=== PATIENT | female | born 1960 ===

== ENCOUNTER 2018-03-11 12:18 | Emergency (ER) | payer SELFPAY ==
[2018-03-11 12:58] VITALS: RESP 18
[2018-03-11] MEDS ORDERED: Sodium Chloride 0.9% 1,000 ML IV STA (13:08)
--- NOTE | 2018-03-11 13:28 | ED PDOC ---
History of Present Illness History of Present Illness: 57 y/o female presents to the ED for evaluation of a headache associated with nausea and cough, onset 4 days ago. Patient states granddaughter has been diagnosed with the Flu. Otherwise, patient denies any vomiting and abdominal pain. PMD: Remy Leblanc HPI: Influenza Time Seen by Provider: 03/11/18 12:35 Chief Complaint: Fever Chief Complaint (Provider): Headache History Per: Patient Exam Limitations: no limitations Have you had recent travel within the past 21 days to any of: No Onset/Duration Of Symptoms: Days (x4) Symptoms include: headache, cough. denies: vomiting Past Medical History Reviewed: Historical Data, Nursing Documentation, Vital Signs Vital Signs: Last Vital Signs Temp 101.2 F H 03/11/18 12:55 Pulse 54 L 03/11/18 12:55 Resp 18 03/11/18 12:55 BP 158/89 H 03/11/18 12:55 Pulse Ox 97 03/11/18 12:55 - Medical History PMH: HTN - Surgical History Surgical History: Appendectomy - Family History Family History: States: Unknown Family Hx - Home Medications Home Medications: Ambulatory Orders Medication Instructions Recorded Acetaminophen [Tylenol Extra 1,000 mg PO Q6 PRN #100 tablet 03/11/18 Strength] Ibuprofen [Motrin Tab] 600 mg PO Q8 PRN #60 tab 03/11/18 - Allergies Allergies/Adverse Reactions: Allergies Allergy/AdvReac Type Severity Reaction Status Date / Time No Known Allergies Allergy Verified 03/11/18 12:22 Review of Systems ROS Statement: Except As Marked, All Systems Reviewed And Found Negative Respiratory: Positive for: Cough Gastrointestinal: Positive for: Nausea Neurological: Positive for: Headache Physical Exam - Reviewed Nursing Documentation Reviewed: Yes Vital Signs Reviewed: Yes - Physical Exam Appears: Positive for: No Acute Distress Head Exam: Positive for: ATRAUMATIC, NORMOCEPHALIC Skin: Positive for: Normal Color, Warm, Dry Eye Exam: Positive for: Normal appearance, EOMI, PERRL Neck: Positive for: Normal, Painless ROM Cardiovascular/Chest: Positive for: Regular Rate, Rhythm. Negative for: Murmur Respiratory: Positive for: Normal Breath Sounds. Negative for: Respiratory Distress Gastrointestinal/Abdominal: Positive for: Normal Exam, Soft. Negative for: Tenderness Extremity: Positive for: Normal ROM. Negative for: Pedal Edema, Deformity Neurologic/Psych: Positive for: Alert, Oriented. Negative for: Motor/Sensory Deficits Medical Decision Making Medical Decision Making: Time: 1308 Plan: -- CMP -- CBC with differential -- CXR Two Views -- Motrin 600 mg PO -- Sodium Chloride IV 125 mls/hr -- Tylenol 650 mg PO -- Zofran Inj 4 mg IVP -- Blood Culture -- Influenza A B Time: 1348 CXR RESULTS FINDINGS: LUNGS: Minimal bibasilar atelectasis PLEURA: No significant pleural effusion identified. No pneumothorax apparent. CARDIOVASCULAR: No significant aortic atherosclerotic calcification present. Normal cardiac size. No pulmonary vascular congestion. OSSEOUS STRUCTURES: No significant abnormalities. VISUALIZED UPPER ABDOMEN: Normal. OTHER FINDINGS: None. IMPRESSION: Minimal bibasilar atelectasis. Scribe Attestation: Documented by Marla Mansfield, acting as a scribe for Ary Clark MD. Provider Scribe Attestation: All medical record entries made by the Scribe were at my direction and personally dictated by me. I have reviewed the chart and agree that the record accurately reflects my personal performance of the history, physical exam, medical decision making, and the department course for this patient. I have also personally directed, reviewed, and agree with the discharge instructions and disposition. - Laboratory Results Result Diagrams: 03/11/18 13:58 03/11/18 13:58 - ECG O2 Sat by Pulse Oximetry: 97 Disposition - Clinical Impression Clinical Impression: Influenza - Disposition Referrals: Ricky Leblanc MD [Primary Care Provider] - Disposition: Transfer of Care Disposition Time: 15:00 Condition: STABLE Prescriptions: Acetaminophen [Tylenol Extra Strength] 1,000 mg PO Q6 PRN #100 tablet PRN Reason: FEVER OR PAIN Ibuprofen [Motrin Tab] 600 mg PO Q8 PRN #60 tab PRN Reason: Pain, Moderate (4-7) Instructions: Flu, Adult (DC) Print Language: [place]IN[place] Patient Signed Over To: Dipti Coker
--- NOTE | 2018-03-11 13:56 | RAD ---
Date of service: 03/11/2018 HISTORY: Cough COMPARISON: Comparison chest 06/11/2012. TECHNIQUE: Chest PA and lateral FINDINGS: LUNGS: Minimal bibasilar atelectasis PLEURA: No significant pleural effusion identified. No pneumothorax apparent. CARDIOVASCULAR: No significant aortic atherosclerotic calcification present. Normal cardiac size. No pulmonary vascular congestion. OSSEOUS STRUCTURES: No significant abnormalities. VISUALIZED UPPER ABDOMEN: Normal. OTHER FINDINGS: None. IMPRESSION: Minimal bibasilar atelectasis.
[2018-03-11 14:20] LABS: BASO % 0.2 % (0.0-2.0); EOS % 0.2 % (0.0-4.0); HEMOGLOBIN 13.6 g/dL (12.0-16.0); LYMPH # 1.3 K/uL (1.0-4.3); LYMPH % 25.6 % (20.0-40.0); MEAN CELL VOLUME 92.3 fl (81.0-99.0); MEAN CORPUSCULAR HEMOGLOBIN 30.1 pg (27.0-31.0); MEAN CORPUSCULAR HGB CONC 32.6 g/dL (33.0-37.0); MEAN PLATELET VOLUME 8.6 fl (7.2-11.7); MONO # 0.4 K/uL (0.0-0.8); MONO % 7.6 % (0.0-10.0); NEUT # 3.3 K/uL (1.8-7.0); NEUT % 66.4 % (50.0-75.0); NRBC % 0.3 % (0.0-0.0); RBC 4.51 Mil/uL (3.80-5.20); RED CELL DISTRIBUTION WIDTH 13.4 % (11.5-14.5)
[2018-03-11 15:11] LABS: BLOOD UREA NITROGEN 9 mg/dl (7-17); CALCIUM 8.5 mg/dL (8.4-10.2); GFR NON-AFRICAN AMERICAN > 60
[2018-03-11 15:16] LABS: ALB/GLOB RATIO 1.2 (1.0-2.1); ALBUMIN 4.3 g/dL (3.5-5.0); ALT/SGPT 83 U/L (9-52); AST/SGOT 109 U/L (14-36)
--- NOTE | 2018-03-11 15:42 | ED PDOC ---
- Laboratory Results Result Diagrams: 03/11/18 13:58 03/11/18 13:58 - ECG O2 Sat by Pulse Oximetry: 95 (RA) Pulse Ox Interpretation: Normal Medical Decision Making Medical Decision Makin Patient signed out to me by Dr. Clark pending CMP. Patient diagnosed with influenza. CXR reviewed, no acute findings. CXR FINDINGS: LUNGS: Minimal bibasilar atelectasis PLEURA: No significant pleural effusion identified. No pneumothorax apparent. CARDIOVASCULAR: No significant aortic atherosclerotic calcification present. Normal cardiac size. No pulmonary vascular congestion. OSSEOUS STRUCTURES: No significant abnormalities. VISUALIZED UPPER ABDOMEN: Normal. OTHER FINDINGS: None. IMPRESSION: Minimal bibasilar atelectasis. Scribe Attestation: Documented by Monet Fournier acting as a scribe for Dipti Coker MD Provider Attestation: All medical record entries made by the Scribe were at my direction and personally dictated by me. I have reviewed the chart and agree that the record accurately reflects my personal performance of the history, physical exam, medical decision making, and the department course for this patient. I have also personally directed, reviewed, and agree with the discharge instructions and disposition. Disposition - Clinical Impression Clinical Impression: Influenza - POA Present On Arrival: None - Disposition Referrals: Ricky Leblanc MD [Primary Care Provider] - Disposition: Routine/Home Disposition Time: 16:20 Condition: STABLE Prescriptions: Acetaminophen [Tylenol Extra Strength] 1,000 mg PO Q6 PRN #100 tablet PRN Reason: FEVER OR PAIN Ibuprofen [Motrin Tab] 600 mg PO Q8 PRN #60 tab PRN Reason: Pain, Moderate (4-7) Instructions: Flu, Adult (DC) Print Language: [place]
[2018-03-11 16:51] VITALS: BP 119/58; PULSE 75
[2018-03-11 17:59] VITALS: TEMP 98.9
[2018-03-15 12:42] VITALS: O2SAT 97
== END 2018-03-11 17:00 | disposition home or self-care (01) ==
LOC: SUPCPDRO 12:18 → H.ER 12:18
DX: J11.1 Influenza due to unidentified influenza virus with other respiratory manifestations (principal)
CPT/HCPCS: 71046; 80053; 85025; 87040; 87804; 99284; J2405; J7030